=== PATIENT | female | born 1980 | race Caucasian/White ===

== ENCOUNTER → 2020-08-09 | Outpatient (CLI) | payer BC ==
[~2020-08-09] MED LIST: CYCLOBENZAPRINE10 MG PO; ECOTRIN81 MG PO; IBUPROFEN600 MG PO; NITROSTAT0.4 MG SL
== END ==
LOC: RAD 10:37
DX: M25.561 Pain in right knee (principal); M25.562 Pain in left knee
CPT/HCPCS: 73562

== ENCOUNTER → 2020-08-16 | Outpatient (CLI) | payer BC | LOC: MAMO 08:30 | DX: Z12.31 Encounter for screening mammogram for malignant neoplasm of breast (principal) | CPT/HCPCS: 77063; 77067 ==

== ENCOUNTER 2021-03-21 08:34 | Emergency (ER) | payer BC ==
[2021-03-21 09:22] LABS: HEMOGLOBIN 12.3 gm/dl (12.3-15.3); RED BLOOD COUNT 4.53 M/UL (4.00-5.10); WHITE BLOOD COUNT 12.4 K/UL (4.5-11.0)
[2021-03-21 09:48] LABS: BUN/CREATININE RATIO 17 (0-10)
[2021-03-21] MEDS ORDERED: AUGMENTIN 875-1 EACH PO (11:33)
[2021-03-21] MEDS ORDERED: ENDOCET 5-3251 EACH PO (12:21)
== END 2021-03-21 12:15 | disposition home or self-care (01) ==
LOC: ER1 08:34
PROVIDERS: Physician Assistant
DX: N39.0 Urinary tract infection, site not specified (principal); K57.32 Diverticulitis of large intestine without perforation or abscess without bleeding; I10 Essential (primary) hypertension
CPT/HCPCS: 80053; 81001; 83690; 84703; 85025; 87086; 96374; 96375; 99284; J2270; J2405; J7030; Q9967

== ENCOUNTER 2021-07-29 08:42 | Emergency (ER) | payer BC ==
[~2021-07-29 08:42] MED LIST changes: +AUGMENTIN 875-1 EACH PO; +ENDOCET 5-3251 EACH PO
[2021-07-29 09:31] LABS: HEMOGLOBIN 13.1 gm/dl (12.3-15.3); RED BLOOD COUNT 5.04 M/UL (4.00-5.10); WHITE BLOOD COUNT 9.8 K/UL (4.5-11.0)
[2021-07-29 09:56] LABS: BUN/CREATININE RATIO 16 (0-10)
[2021-07-29] MEDS ORDERED: CEPHALEXIN500 MG PO (11:11)
[2021-07-29] MEDS ORDERED: PYRIDIUM200 MG PO (11:14)
== END 2021-07-29 11:25 | disposition home or self-care (01) ==
LOC: ER1 08:42
PROVIDERS: Emergency Medicine
DX: N30.00 Acute cystitis without hematuria (principal)
CPT/HCPCS: 80053; 81001; 83690; 84703; 85025; 99284; Q9967